=== PATIENT | female | born 1975 | race Caucasian/White ===

== ENCOUNTER → 2018-10-04 | Day surgery (SDC) | payer BC ==
--- NOTE | 2018-10-04 09:21 | MMO ---
STEREOTACTIC RIGHT BREAST BIOPSY BIOPSY MARKING CLIP DEPLOYMENT WITHIN RIGHT BREAST: Date: 10/04/18 INDICATION: Indeterminate, pleomorphic clustering of calcifications central inner right female breast. PROCEDURE: Informed consent was obtained. The patient was escorted to the procedural suite and placed into a pro ne position with the right breast placed into mammographic compression. The calcifications of interes t were localized mammographically. Stereotactic coordinates were acquired. The right breast was prepp ed and draped in the standard sterile fashion. Topical anesthesia with buffered 1% lidocaine was then achieved and a small skin incision was made, through which a 10 gauge vacuum-assist stereotactic bio psy needle was advanced to the leading edge of the calcifications, confirmed with tangential mammogra phic views. The needle was then deployed. Subsequently, six separate core specimen procedures were pe rformed. The specimens were removed and were subsequently radiographed which did reveal microcalcific ations within the excised specimens. The biopsy needle was then removed. Marking clip was then advanc ed to and deployed within the site of biopsy, confirmed mammographically. IMPRESSION: 1. Technically successful stereotactic biopsy of right breast, yielding microcalcifications within e xcised specimens. 2. Technically successful clip deployment at site of biopsy within the inner right breast. 3. Pathology results are pending. Patient will be notified of results when they are received. POS: [facility]
--- NOTE | 2018-10-04 09:22 | MMO ---
SPECIMEN RADIOGRAPHS: Date: 10/04/18 INDICATION: Status post stereotactic biopsy of the calcifications within the central inner quadrant of the right breast. FINDINGS: Radiographed specimens do reveal microcalcifications. IMPRESSION: Excised specimens reveal internal microcalcifications. POS: [facility]
--- NOTE | 2018-10-04 09:32 | MMO ---
POSTPROCEDURAL DIAGNOSTIC RIGHT MAMMOGRAM: Date: 10/04/18 CLINICAL HISTORY: Status post sterotactic biopsy and marking clip within the inner right breast. FINDINGS: CC view reveals clip deployment and reduced number of calcifications at the site of interest. The MLO view does reveal decreased number of calcifications of interest with cephalad migration of the clip relative to the site of biopsy. IMPRESSION: Status post stereotactic biopsy and clip deployment of the right breast. POS: [facility]
== END ==
LOC: MAMMO 07:43
PROVIDERS: ATTEND Radiology Diagnostic Radiology
PROC: 0HBT3ZX Excision of Right Breast, Percutaneous Approach, Diagnostic (ICD-10-PCS; principal; 2018-10-04)
DX: N60.81 Other benign mammary dysplasias of right breast (principal); N60.31 Fibrosclerosis of right breast
CPT/HCPCS: 19081; 76098; 88305; 89060

== ENCOUNTER 2018-11-04 09:46 | Emergency (ER) | payer BC ==
[2018-11-04 10:59] LABS: #Lymphocytes 1.2 thou/uL (1.20-3.40); #Monocytes 0.1 thou/uL (0.11-0.59); #Neutrophils 12.3 thou/uL (1.40-6.50); %Basophils 0.3 % (0.0-1.0); %Eosinophils 0.1 % (0.0-10.0); %Lymphocytes 8.6 % (21.0-51.0); Hemoglobin 12.8 g/dL (12.0-16.0); Mean Corpuscular HGB CONC 33.5 g/dL (32.0-36.0); Mean Corpuscular Hemoglobin 30.9 pg (27.0-31.0); Mean Corpuscular Volume 92.2 fL (78.0-98.0); Mean Platelet Volume 7.2 fL (7.4-10.4); Platelet Count 280 thou/uL (130-400); RBC Distribution Width 11.1 % (11.5-14.5); Red Blood Cell (RBC) Count 4.14 mill/uL (4.20-5.40); White Blood Cell (WBC) Count 13.6 thou/uL (4.8-10.8)
[2018-11-04] MEDS ORDERED: diphenhydrAMINE 50 MG/ML VIAL ONE (11:03)
[2018-11-04] MEDS ORDERED: Magnesium 2 GM/50 ML BAG (IN WATER) ONE ×2 (11:03→11:04)
[2018-11-04] MEDS ORDERED: Metoclopramide HCl 10 MG/2 ML VIAL ONE (11:03)
[2018-11-04] MEDS ORDERED: methylPREDNISolone Sod Succ/PF 125 MG/2 ML VIAL ONE (11:03)
[2018-11-04 11:21] LABS: ALT (SGPT) 59 U/L (8-55); AST (SGOT) 49 U/L (5-34); Albumin 4.3 g/dL (3.5-5.0); Alkaline Phosphatase 80 U/L (40-150); Anion Gap 13 mmol/L (10-20); BUN (Urea Nitrogen) 19 mg/dL (7.0-18.7); Bilirubin, Total 0.3 mg/dL (0.2-1.2); Calc. Creatinine Clearance 0 mL/min (70-130); Calcium 9.5 mg/dL (7.8-10.44); Carbon Dioxide 26 mmol/L (22-29); Chloride 104 mmol/L (98-107); Estimated GFR-MDRD 84; Globulin 3.1 g/dL (2.4-3.5); Glucose 107 mg/dL (70-105); Potassium 3.3 mmol/L (3.5-5.1); Protein, Total 7.4 g/dL (6.0-8.3); Sodium 140 mmol/L (136-145)
--- NOTE | 2018-11-04 11:33 | CT ---
BRAIN CT WITHOUT IV CONTRAST: Date: 11/04/18 HISTORY: Headache. FINDINGS: No focal mass or midline shift. No intra or extra-axial hemorrhage. Ethmoid and left maxillary sinus mucosal changes. The mastoids are clear. IMPRESSION: Evidence for sinus mucosal disease. No mass or bleed, or other acute intracranial process. POS: [facility]
[2018-11-04] MEDS ORDERED: Proparacaine 0.5% Opth 15 ML BOT ONE (12:18)
[2018-11-04] MEDS ORDERED: Morphine 4 MG/ML VIAL ONE ×2 (12:27→14:20)
== END 2018-11-04 14:29 | disposition home or self-care (01) ==
LOC: ERS 09:46
DX: J01.90 Acute sinusitis, unspecified (principal); H57.12 Ocular pain, left eye; Z79.899 Other long term (current) drug therapy
CPT/HCPCS: 36415; 70450; 80053; 85025; 85652; 86140; 96365; 96375; 96376; J1200; J2270; J2765; J2930; J3475